=== PATIENT | male | born 1990 | race African-American/Black ===

== ENCOUNTER 2021-10-29 13:03 | Inpatient (IN) | payer MEDICAID ==
[~2021-10-29] VITALS: Ht 183.9 cm; Wt 90.7 kg
[2021-10-29] MEDS ORDERED: SODIUM CHLORIDE 0.9% 1,000 ML IV ONE (15:00)
[2021-10-29 15:26] LABS: EOSINOPHILS % 0.9 % (0.0-5.0); HEMATOCRIT. 43.6 % (42.0-52.0); HEMOGLOBIN. 14.6 g/dL (14.0-18.0); LYMPHOCYTES % 23.2 % (20.0-50.0); MEAN CORPUSCULAR HEMOGLOBIN 31.8 pg (28.0-32.0); MEAN CORPUSCULAR VOLUME 94.9 fL (80.0-94.0); MEAN PLATELET VOLUME 8.5 fl (7.4-10.4); MONOCYTES % 8.8 % (2.0-8.0); NEUTROPHILS % 66.1 % (40.0-76.0); PLATELET 141 x1000/uL (130-400); RED BLOOD CELL COUNT 4.59 mill/uL (4.7-6.1); RED CELL DISTRIBUTION WIDTH 14.8 % (11.6-14.6)
[2021-10-29 15:28] LABS: CHLORIDE 92 mEq/L (98-107)
[2021-10-29 15:38] LABS: ETHANOL BLOOD 112 mg/dL
[2021-10-29] MEDS ORDERED: FOLIC ACID 1 MG, THIAMINE HCL 100 MG, MVI, ADULT NO.1 10 ML in DEXTROSE 5% WATER 1,000 ML IV ONE ×4 (16:45)
[2021-10-29] MEDS ORDERED: POTASSIUM CHLORIDE 20MEQ TABLET SR PO NR (16:45)
[2021-10-29] MEDS ORDERED: LORAZEPAM 1MG TABLET PO ONE (18:45)
[2021-10-29] MEDS ORDERED: ACETAMINOPHEN 325MG TABLET PO PRN (19:00)
[2021-10-29] MEDS ORDERED: ONDANSETRON HCL 4MG/2ML INJ IV PRN (19:00)
[2021-10-29] MEDS ORDERED: MORPHINE SULFATE 2 MG/ML CPJ (NOT FOR IM USE) IV PRN (19:00)
[2021-10-29] MEDS ORDERED: IPRATROPIUM/ALBUTEROL 0.5-3(2.5)MG/3ML NEB HHN PRN (19:00)
[2021-10-29] MEDS ORDERED: HYDRALAZINE 20MG/ML VIAL IV PRN (19:00)
[2021-10-29] MEDS ORDERED: DIPHENHYDRAMINE 50MG/ML VIAL IV PRN (19:00)
[2021-10-29] MEDS ORDERED: MIDAZOLAM HCL 2 MG/2 ML VIAL IV PRN (19:00)
[2021-10-29] MEDS ORDERED: DOCUSATE SODIUM 100MG CAPSULE PO PRN (19:00)
[2021-10-29] MEDS ORDERED: GUAIFENESIN 200MG/10ML SUGAR FREE UDC PO PRN (19:00)
[2021-10-29] MEDS ORDERED: MVI, ADULT NO.1 10 ML, FOLIC ACID 1 MG, THIAMINE HCL 100 MG in SODIUM CHLORIDE 0.9% 1,0... IV ONE ×4 (19:00)
[2021-10-29] MEDS ORDERED: CLONIDINE 0.1MG TABLET PO PRN (19:00)
[2021-10-29] MEDS ORDERED: MAGNESIUM/ALUMINUM HYDROXIDE/SIMETHICONE 30ML UDC PO PRN (19:00)
[2021-10-29] MEDS ORDERED: HYDROCODONE/ACETAMINOPHEN 5/325MG TABLET PO PRN (19:00)
[2021-10-29] MEDS ORDERED: NALOXONE HCL 0.4MG/ML VIAL IV PRN (19:45)
[2021-10-29] MEDS: CHLORDIAZEPOXIDE 25MG CAPSULE PO SCH (22:00)
[2021-10-30] MEDS: ENOXAPARIN 40MG/0.4ML SYR SUBCUT SCH ×2 (03:35→18:04)
[2021-10-30] MEDS: SODIUM CHLORIDE 0.45% 1,000 ML IV SCH ×2 (03:35→16:29)
[2021-10-30] MEDS: CHLORDIAZEPOXIDE 25MG CAPSULE PO SCH ×4 (03:36→22:15)
[2021-10-30] MEDS: SODIUM CHLORIDE 0.9% INJ 3ML FLUSH IVF SCH ×4 (03:36→22:19)
[2021-10-30 04:15] VITALS: BP 136/95
[2021-10-30 05:36] LABS: BASOPHILS % 0.6 % (0.0-2.0); EOSINOPHILS % 1.8 % (0.0-5.0); HEMATOCRIT. 38.5 % (42.0-52.0); HEMOGLOBIN. 13.3 g/dL (14.0-18.0); LYMPHOCYTES % 25.4 % (20.0-50.0); MEAN CORPUSCULAR HEMOGLOBIN 32.3 pg (28.0-32.0); MEAN CORPUSCULAR VOLUME 93.2 fL (80.0-94.0); MEAN PLATELET VOLUME 9.2 fl (7.4-10.4); MONOCYTES % 9.3 % (2.0-8.0); NEUTROPHILS % 62.9 % (40.0-76.0); PLATELET 116 x1000/uL (130-400); RED BLOOD CELL COUNT 4.14 mill/uL (4.7-6.1); RED CELL DISTRIBUTION WIDTH 14.8 % (11.6-14.6)
[2021-10-30 05:59] LABS: CHLORIDE 94 mEq/L (98-107)
[2021-10-30] MEDS ORDERED: PROP10TA10 PO (06:01)
[2021-10-30 08:00] VITALS: BP 135/94
[2021-10-30] MEDS ORDERED: MVI, ADULT NO.1 10 ML, FOLIC ACID 1 MG, THIAMINE HCL 100 MG in SODIUM CHLORIDE 0.9% 1,0... IV ONE ×4 (09:00)
[2021-10-30 12:00] VITALS: BP 130/94
[2021-10-30 16:00] VITALS: BP 134/87
[2021-10-30] MEDS ORDERED: NAPHAZOLINE HCL/PHENIR MAL OPHTH SOLN 15ML BOTHEYE PRN (18:00)
[2021-10-30 20:00] VITALS: BP 125/87
[2021-10-31] VITALS: BP 129/90
[2021-10-31 04:00] VITALS: BP 125/88
[2021-10-31] MEDS: SODIUM CHLORIDE 0.9% INJ 3ML FLUSH IVF SCH (05:02)
[2021-10-31] MEDS: CHLORDIAZEPOXIDE 25MG CAPSULE PO SCH ×2 (05:02→13:49)
[2021-10-31] MEDS: SODIUM CHLORIDE 0.45% 1,000 ML IV SCH (05:02)
[2021-10-31 07:05] LABS: BASOPHILS % 0.8 % (0.0-2.0); EOSINOPHILS % 3.6 % (0.0-5.0); HEMATOCRIT. 34.8 % (42.0-52.0); HEMOGLOBIN. 11.9 g/dL (14.0-18.0); LYMPHOCYTES % 27.3 % (20.0-50.0); MEAN CORPUSCULAR HEMOGLOBIN 31.9 pg (28.0-32.0); MEAN CORPUSCULAR VOLUME 93.7 fL (80.0-94.0); MEAN PLATELET VOLUME 9.5 fl (7.4-10.4); MONOCYTES % 10.5 % (2.0-8.0); NEUTROPHILS % 57.8 % (40.0-76.0); PLATELET 107 x1000/uL (130-400); RED BLOOD CELL COUNT 3.72 mill/uL (4.7-6.1); RED CELL DISTRIBUTION WIDTH 14.5 % (11.6-14.6)
[2021-10-31 07:24] LABS: CHLORIDE 96 mEq/L (98-107)
[2021-10-31 08:00] VITALS: BP 127/89
[2021-10-31 12:00] VITALS: BP 124/88
[2021-10-31 14:53] VITALS: BP 124/88
[2021-10-31 16:00] VITALS: BP 119/80
== END 2021-10-31 18:24 | disposition home or self-care (01) | DRG 775 ==
LOC: ER 13:38 → 6WST 18:48 → EDBEDREQ 18:50 → EDBEDREQSVC 19:05 → ENRESERV 20:46 → 6WST 23:10 → UNDOADMIN 23:10
PROVIDERS: ADMIT Internal Medicine; ATTEND Internal Medicine
DX: F10.139 Alcohol abuse with withdrawal, unspecified (principal); R16.0 Hepatomegaly, not elsewhere classified; E87.1 Hypo-osmolality and hyponatremia; E86.0 Dehydration; E87.6 Hypokalemia; R74.01 Elevation of levels of liver transaminase levels; I10 Essential (primary) hypertension; F32.A Depression, unspecified; Y90.5 Blood alcohol level of 100-119 mg/100 ml
CPT/HCPCS: 36415; 70486; 76705; 80048; 80053; 80076; 80307; 80320; 85025; 99285; J1650; J3411; J3490; J7030; J7070; G0480